=== PATIENT | female | born 1965 | race Caucasian/White ===

== ENCOUNTER 2016-12-24 10:51 | Outpatient (CLI) | payer BC, OTHER ==
[2016-12-24 11:30] LABS: eGFR (African) > 60; eGFR (Non-African) > 60
== END 2016-12-24 10:52 ==
LOC: LAB 10:51
PROVIDERS: ATTEND Family Medicine
DX: E03.9 Hypothyroidism, unspecified (principal); Z00.00 Encounter for general adult medical examination without abnormal findings
CPT/HCPCS: 36415; 80053; 80061; 84443